=== PATIENT | male | born 1955 | race Caucasian/White ===

== ENCOUNTER 2018-05-15 04:51 | Inpatient (IN) | payer BC ==
[2018-05-15 05:17] LABS: ADD MAN DIFF? NO
[2018-05-15] MEDS: LEVALBUTEROL (NEB) 1.25 MG/0.5 ML AMP HHN ×2 (05:18→11:36)
[2018-05-15] MEDS: IPRATROPIUM (NEB) 0.5 MG/2.5 ML AMP HHN (05:18)
[2018-05-15 05:20] LABS: BASOPHIL # 0.1 10^3/ul (0.0-0.1); BASOPHILS % 0.7 % (0.0-2.0); EOSINOPHILS % 0.4 % (0.0-7.0); HEMATOCRIT 45.2 % (42.0-52.0); HEMOGLOBIN 15.4 g/dl (14.0-18.0); LYMPHOCYTES # 1.2 10^3/ul (0.8-2.9); LYMPHOCYTES % 11.1 % (15.0-51.0); MEAN CORPUSCULAR HEMOGLOBIN 31.6 pg (29.0-33.0); MEAN CORPUSCULAR HGB CONC 34.1 g/dl (32.0-37.0); MEAN CORPUSCULAR VOLUME 92.8 fl (82.0-101.0); MEAN PLATELET VOLUME 11.5 fl (7.4-10.4); MONOCYTE # 1.1 10^3/ul (0.3-0.9); MONOCYTES % 10.5 % (0.0-11.0); NEUTROPHIL # 7.9 10^3/ul (1.6-7.5); NEUTROPHILS % 76.5 % (39.0-77.0); PLATELET COUNT 238 10^3/UL (140-415); RED BLOOD COUNT 4.87 10^6/ul (4.70-6.10)
[2018-05-15 05:20] LABS: WHITE BLOOD COUNT 10.4 10^3/ul (4.8-10.8)
[2018-05-15] MEDS: DILTIAZEM 25 MG INJ IV (05:22)
[2018-05-15 05:38] LABS: INR 1.26; PT RATIO 1.3
[2018-05-15 05:39] LABS: PARTIAL THROMBOPLASTIN TIME 27.9 Sec (23.0-35.0)
[2018-05-15] MEDS: DILTIAZEM 30 MG TAB PO (05:43)
[2018-05-15 05:56] LABS: ANION GAP 10 (5-13); BLOOD UREA NITROGEN 17 mg/dl (7-20); CALCIUM 8.7 mg/dl (8.4-10.2); CARBON DIOXIDE 25 mmol/L (21-31); CHLORIDE 104 mmol/L (97-110); CREATININE 1.04 mg/dl (0.61-1.24); Estimated GFR > 60 mL/min (>60); GLUCOSE 119 mg/dl (70-220); POTASSIUM 5.2 mmol/L (3.5-5.1); SODIUM 139 mmol/L (135-144)
[2018-05-15] MEDS ORDERED: ACETAMINOPHEN 325 MG TAB PO ×2 (06:00→06:30)
[2018-05-15] MEDS ORDERED: ONDANSETRON 4 MG INJ IV ×2 (06:00→06:30)
[2018-05-15 06:07] LABS: TROPONIN-I < 0.012 ng/ml (0.000-0.120)
[2018-05-15] MEDS ORDERED: NACL 0.9% 3 ML SYG IV (06:30)
[2018-05-15 07:15] LABS: DIGOXIN 0.9 ng/ml (1.0-2.0)
[2018-05-15] MEDS: TIOTROPIUM 18 MCG CAPSULE INHA DEV INH (09:00)
[2018-05-15] MEDS: FLUTICASONE/VILANTEROL 200-25 INH DEVICE INH (09:00)
[2018-05-15] MEDS ORDERED: NON-FORMULARY/PATIENT OWN MED (Salmeterol Xinaf-Fluticasone* (Advair*) 1 INH) INHALATION (09:00)
[2018-05-15] MEDS: APIXABAN 5 MG TABLET PO ×2 (09:17→21:28)
[2018-05-15] MEDS: LOSARTAN 25 MG TAB PO (09:18)
[2018-05-15] MEDS ORDERED: LEVALBUTEROL (NEB) 1.25 MG/0.5 ML AMP HHN (11:30)
[2018-05-15 11:54] LABS: CREATINE KINASE 240 IU/L (23-200)
[2018-05-15 12:06] LABS: CK INDEX 0.7; TROPONIN-I < 0.012 ng/ml (0.000-0.120)
[2018-05-15 12:26] LABS: CK-MB 1.69 ng/ml (0.0-2.4)
[2018-05-15] MEDS: DILTIAZEM 60 MG TAB PO (12:42)
[2018-05-15] MEDS: DIGOXIN 0.25 MG TAB PO (12:42)
[2018-05-15] MEDS: CEFTRIAXONE 1 GM/50 ML (PMX) 50 ML IVPB (12:42)
[2018-05-15] MEDS: FUROSEMIDE 40 MG INJ IV ×2 (14:28→14:52)
[2018-05-15] MEDS: LEVALBUTEROL (NEB) 0.63 MG/3 ML AMP HHN ×2 (14:41→19:15)
[2018-05-15] MEDS: AZITHROMYCIN 500MG/NS (PMX) 250 ML IVPB (14:51)
[2018-05-15] MEDS: BISOPROLOL 5 MG TAB PO (14:54)
[2018-05-15 17:28] LABS: CREATINE KINASE 244 IU/L (23-200)
[2018-05-15 17:41] LABS: CK INDEX 0.8; CK-MB 1.88 ng/ml (0.0-2.4); TROPONIN-I < 0.012 ng/ml (0.000-0.120)
[2018-05-16] MEDS: LEVALBUTEROL (NEB) 0.63 MG/3 ML AMP HHN ×4 (01:24→19:59)
[2018-05-16 05:08] LABS: ADD MAN DIFF? NO
[2018-05-16 05:15] LABS: BASOPHILS % 0.5 % (0.0-2.0); EOSINOPHILS # 0.2 10^3/ul (0.0-0.5); EOSINOPHILS % 1.9 % (0.0-7.0); HEMATOCRIT 41.6 % (42.0-52.0); HEMOGLOBIN 14.3 g/dl (14.0-18.0); LYMPHOCYTES # 1.2 10^3/ul (0.8-2.9); LYMPHOCYTES % 15.3 % (15.0-51.0); MEAN CORPUSCULAR HEMOGLOBIN 31.8 pg (29.0-33.0); MEAN CORPUSCULAR HGB CONC 34.4 g/dl (32.0-37.0); MEAN CORPUSCULAR VOLUME 92.4 fl (82.0-101.0); MEAN PLATELET VOLUME 11.9 fl (7.4-10.4); MONOCYTE # 1.1 10^3/ul (0.3-0.9); MONOCYTES % 13.5 % (0.0-11.0); NEUTROPHIL # 5.4 10^3/ul (1.6-7.5); NEUTROPHILS % 68.5 % (39.0-77.0); PLATELET COUNT 199 10^3/UL (140-415)
[2018-05-16 05:15] LABS: WHITE BLOOD COUNT 7.9 10^3/ul (4.8-10.8)
[2018-05-16 05:27] LABS: HEMOGLOBIN A1C 5.4 % (0-5.9)
[2018-05-16 05:41] LABS: DIGOXIN 0.7 ng/ml (1.0-2.0)
[2018-05-16 05:44] LABS: ALANINE AMINOTRANSFERASE 88 IU/L (13-69); ALBUMIN 3.5 g/dl (3.3-4.9); ALBUMIN/GLOBULIN RATIO 1.75; ALKALINE PHOSPHATASE 47 IU/L (42-121); ANION GAP 8 (5-13); ASPARTATE AMINO TRANSFERASE 38 IU/L (15-46); BILIRUBIN,INDIRECT 0.5 mg/dl (0-1.1); BILIRUBIN,TOTAL 0.5 mg/dl (0.2-1.3); BLOOD UREA NITROGEN 19 mg/dl (7-20); CALCIUM 8.4 mg/dl (8.4-10.2); CARBON DIOXIDE 25 mmol/L (21-31); CHLORIDE 106 mmol/L (97-110); CREATININE 0.79 mg/dl (0.61-1.24); Estimated GFR > 60 mL/min (>60); GLUCOSE 124 mg/dl (70-220); MAGNESIUM 2.2 mg/dl (1.7-2.5); SODIUM 139 mmol/L (135-144); TOTAL PROTEIN 5.5 g/dl (6.1-8.1)
[2018-05-16] MEDS: APIXABAN 5 MG TABLET PO ×2 (08:33→20:24)
[2018-05-16] MEDS: BISOPROLOL 5 MG TAB PO (08:33)
[2018-05-16] MEDS: LOSARTAN 25 MG TAB PO (08:33)
[2018-05-16] MEDS: FLUTICASONE/VILANTEROL 200-25 INH DEVICE INH (08:33)
[2018-05-16] MEDS: TIOTROPIUM 18 MCG CAPSULE INHA DEV INH (08:33)
[2018-05-16] MEDS: FUROSEMIDE 40 MG INJ IV (12:18)
[2018-05-16] MEDS: DIGOXIN 0.25 MG TAB PO (13:26)
[2018-05-16] MEDS: CEFTRIAXONE 1 GM/50 ML (PMX) 50 ML IVPB (13:46)
[2018-05-16] MEDS: AZITHROMYCIN 500MG/NS (PMX) 250 ML IVPB (14:19)
[2018-05-17] MEDS: LEVALBUTEROL (NEB) 0.63 MG/3 ML AMP HHN ×3 (01:38→13:20)
[2018-05-17] MEDS: METOPROLOL 5 MG INJ IV (03:30)
[2018-05-17] MEDS: DIAZEPAM 5 MG TAB PO (03:44)
[2018-05-17] MEDS: BISOPROLOL 5 MG TAB PO (08:17)
[2018-05-17] MEDS: LOSARTAN 25 MG TAB PO (08:17)
[2018-05-17] MEDS: APIXABAN 5 MG TABLET PO (08:17)
[2018-05-17] MEDS: FUROSEMIDE 40 MG INJ IV (08:18)
[2018-05-17] MEDS: FLUTICASONE/VILANTEROL 200-25 INH DEVICE INH (08:18)
[2018-05-17] MEDS: TIOTROPIUM 18 MCG CAPSULE INHA DEV INH (08:18)
[2018-05-17] MEDS ORDERED: ZOLPIDEM 5 MG TAB PO (10:30)
[2018-05-17] MEDS ORDERED: PROPOFOL 20 ML (12:37)
[2018-05-17] MEDS ORDERED: EPHEDrine SULFATE 50 MG/5 ML SYG IV (13:30)
[2018-05-17] MEDS ORDERED: ONDANSETRON 4 MG INJ IV (13:30)
[2018-05-17] MEDS ORDERED: hydrALAzine 20 MG INJ IV (13:30)
[2018-05-17] MEDS ORDERED: MEPERIDINE 25 MG INJ IV (13:30)
[2018-05-17] MEDS ORDERED: DIPHENHYDRAMINE 50 MG INJ IV (13:30)
[2018-05-17] MEDS ORDERED: ALBUTEROL 0.083% (NEB) 2.5 MG/3 ML AMP HHN (13:30)
[2018-05-17] MEDS ORDERED: HYDROmorphONE 1 MG/5 ML IV SYRINGE IV ×2 (13:30)
[2018-05-17] MEDS ORDERED: FENTAnyl 50 MCG/ML VIAL IV ×2 (13:30)
[2018-05-17] MEDS ORDERED: LABETALOL HCL 20MG INJ IV (13:30)
[2018-05-17] MEDS: CEFTRIAXONE 1 GM/50 ML (PMX) 50 ML IVPB (13:59)
[2018-05-17] MEDS: DIGOXIN 0.25 MG TAB PO (13:59)
[2018-05-17] MEDS: AZITHROMYCIN 500MG/NS (PMX) 250 ML IVPB (14:51)
== END 2018-05-17 17:50 | disposition home or self-care (01) | DRG 291 ==
LOC: E/R 04:51 → 6WM 05:58
PROC: 5A2204Z Restoration of Cardiac Rhythm, Single (ICD-10-PCS; principal; 2018-05-17 12:20)
PROC: B24BZZ4 Ultrasonography of Heart with Aorta, Transesophageal (ICD-10-PCS; 2018-05-17 12:20)
DX: I11.0 Hypertensive heart disease with heart failure (principal); J96.01 Acute respiratory failure with hypoxia; J44.1 Chronic obstructive pulmonary disease with (acute) exacerbation; I50.23 Acute on chronic systolic (congestive) heart failure; I48.91 Unspecified atrial fibrillation; E87.5 Hyperkalemia; I42.9 Cardiomyopathy, unspecified; E66.9 Obesity, unspecified; Z87.891 Personal history of nicotine dependence; Z79.01 Long term (current) use of anticoagulants
CPT/HCPCS: 36415; 71045; 80048; 80053; 80162; 82550; 82553; 83036; 83735; 84484; 85025; 85610; 85730; 93005; 93312; 93320; 93325; 94640; 94664; 96374; 99291-25

== ENCOUNTER 2018-11-01 08:59 | Emergency (ER) | payer BC ==
[2018-11-01] MEDS: ONDANSETRON 4 MG INJ IV (10:13)
[2018-11-01] MEDS: SOD CHLORIDE 0.9% 500 ML IV (10:13)
[2018-11-01 10:15] LABS: ADD MAN DIFF? NO
[2018-11-01 10:17] LABS: WHITE BLOOD COUNT 6.1 10^3/ul (4.8-10.8)
[2018-11-01 10:17] LABS: BASOPHIL # 0.1 10^3/ul (0.0-0.1); EOSINOPHILS # 0.1 10^3/ul (0.0-0.5); EOSINOPHILS % 0.8 % (0.0-7.0); HEMATOCRIT 45.5 % (42.0-52.0); HEMOGLOBIN 15.9 g/dl (14.0-18.0); LYMPHOCYTES # 1.1 10^3/ul (0.8-2.9); LYMPHOCYTES % 18.3 % (15.0-51.0); MEAN CORPUSCULAR HGB CONC 34.9 g/dl (32.0-37.0); MEAN CORPUSCULAR VOLUME 91.5 fl (82.0-101.0); MEAN PLATELET VOLUME 10.3 fl (7.4-10.4); MONOCYTE # 0.6 10^3/ul (0.3-0.9); MONOCYTES % 9.6 % (0.0-11.0); NEUTROPHIL # 4.3 10^3/ul (1.6-7.5); PLATELET COUNT 216 10^3/UL (140-415); RED BLOOD COUNT 4.97 10^6/ul (4.70-6.10); RED CELL DISTRIBUTION WIDTH 11.8 % (11.5-14.5)
[2018-11-01 10:26] LABS: ADD UMIC YES; UR ASCORBIC ACID NEGATIVE (NEGATIVE); UR BILIRUBIN (Dip) NEGATIVE (NEGATIVE); UR BLOOD (Dip) 1+ mg/dL (NEGATIVE); UR CLARITY CLEAR (CLEAR); UR COLOR COLORLESS (YELLOW); UR GLUCOSE (Dip) NEGATIVE (NEGATIVE); UR KETONES (Dip) NEGATIVE (NEGATIVE); UR LEUKOCYTE ESTERASE (Dip) NEGATIVE Leu/ul (NEGATIVE); UR NITRITE (Dip) NEGATIVE (NEGATIVE); UR RBC 0 /HPF (0-5); UR SPECIFIC GRAVITY (Dip) 1.004 (1.003-1.030); UR TOTAL PROTEIN (Dip) NEGATIVE (NEGATIVE); UR UROBILINOGEN (Dip) NEGATIVE (NEGATIVE); UR WBC 0 /HPF (0-5)
[2018-11-01 10:36] LABS: INR 1.02; PROTIME 13.5 Sec (11.9-14.9); PT RATIO 1.1
[2018-11-01 10:37] LABS: PARTIAL THROMBOPLASTIN TIME 28.7 Sec (23.0-35.0)
[2018-11-01 10:47] LABS: ALANINE AMINOTRANSFERASE 35 IU/L (13-69); ALBUMIN 4.4 g/dl (3.3-4.9); ALBUMIN/GLOBULIN RATIO 1.57; ALKALINE PHOSPHATASE 56 IU/L (42-121); AMYLASE 71 U/L (11-123); ANION GAP 8 (5-13); ASPARTATE AMINO TRANSFERASE 24 IU/L (15-46); BILIRUBIN,INDIRECT 0.7 mg/dl (0-1.1); BILIRUBIN,TOTAL 0.7 mg/dl (0.2-1.3); BLOOD UREA NITROGEN 16 mg/dl (7-20); CALCIUM 9.5 mg/dl (8.4-10.2); CARBON DIOXIDE 27 mmol/L (21-31); CHLORIDE 106 mmol/L (97-110); CREATININE 0.81 mg/dl (0.61-1.24); Estimated GFR > 60 mL/min (>60); GLUCOSE 110 mg/dl (70-220); LIPASE 123 U/L (23-300); POTASSIUM 4.3 mmol/L (3.5-5.1); SODIUM 141 mmol/L (135-144); TOTAL PROTEIN 7.2 g/dl (6.1-8.1)
[2018-11-01 10:55] LABS: TROPONIN-I < 0.012 ng/ml (0.000-0.120)
== END 2018-11-01 11:33 | disposition home or self-care (01) ==
LOC: FTE 08:59
DX: J40 Bronchitis, not specified as acute or chronic (principal); I10 Essential (primary) hypertension; J44.9 Chronic obstructive pulmonary disease, unspecified; R10.9 Unspecified abdominal pain
CPT/HCPCS: 71045; 80053; 81001; 82150; 83690; 84484; 85025; 85610; 85730; 87086; 93005; 96374; 99285-25

== ENCOUNTER 2019-02-07 11:47 | Emergency (ER) | payer BC | END 2019-02-07 12:49 | disposition home or self-care (01) | LOC: E/R 11:47 | DX: I11.0 Hypertensive heart disease with heart failure (principal); G47.00 Insomnia, unspecified; I50.9 Heart failure, unspecified; J44.9 Chronic obstructive pulmonary disease, unspecified | CPT/HCPCS: 99283 ==

== ENCOUNTER 2019-02-20 10:38 | Emergency (ER) | payer BC | END 2019-02-20 13:31 | disposition home or self-care (01) | LOC: E/R 10:38 | DX: S40.012A Contusion of left shoulder, initial encounter (principal); I10 Essential (primary) hypertension; J44.9 Chronic obstructive pulmonary disease, unspecified; F17.210 Nicotine dependence, cigarettes, uncomplicated; X58.XXXA Exposure to other specified factors, initial encounter; Y92.9 Unspecified place or not applicable | CPT/HCPCS: 99282 ==